=== PATIENT | female | born 1975 | race Two or more races ===

== ENCOUNTER 2022-06-23 02:43 | Emergency (ER) | payer OTHER ==
[~2022-06-23] VITALS: Ht 170.2 cm; Wt 66.7 kg
[2022-06-23] MEDS ORDERED: TRAMADOL HCL50 MG PO (03:38)
== END 2022-06-23 03:48 ==
LOC: ER 02:43
DX: K08.89 Other specified disorders of teeth and supporting structures (principal)

== ENCOUNTER 2022-06-24 04:59 | Emergency (ER) | payer OTHER ==
[~2022-06-24] VITALS: Ht 170.2 cm; Wt 66.7 kg
[~2022-06-24 04:59] MED LIST: TRAMADOL HCL50 MG PO
[2022-06-24] MEDS ORDERED: TRAMADOL HCL50 MG PO (07:07)
== END 2022-06-24 07:30 | disposition home or self-care (01) ==
LOC: ER 04:59
DX: K08.89 Other specified disorders of teeth and supporting structures (principal); Z98.890 Other specified postprocedural states